=== PATIENT | male | born 1965 | race Two or more races ===

== ENCOUNTER 2020-02-12 14:50 | Emergency (ER) | payer MEDICAID, OTHER ==
[~2020-02-12] VITALS: Ht 185.4 cm; Wt 104.8 kg
[2020-02-12 20:01] VITALS: BP 131/88
== END 2020-02-12 20:50 | disposition home or self-care (01) ==
LOC: ER 14:50
DX: K04.7 Periapical abscess without sinus (principal); K02.9 Dental caries, unspecified; K03.81 Cracked tooth

== ENCOUNTER 2020-07-19 10:21 | Emergency (ER) | payer MEDICAID ==
[~2020-07-19] VITALS: Ht 185.4 cm; Wt 108.9 kg
[2020-07-19 10:25] VITALS: BP 140/96
== END 2020-07-19 11:04 | disposition home or self-care (01) ==
LOC: ER 10:21
DX: K04.7 Periapical abscess without sinus (principal)

== ENCOUNTER 2021-10-25 07:09 | Emergency (ER) | payer MEDICAID ==
[~2021-10-25] VITALS: Ht 188 cm; Wt 106.6 kg
[2021-10-25] MEDS ORDERED: PENI500T2 PO (08:00)
[2021-10-25] MEDS ORDERED: LIDO2SOL23 MT (08:00)
[2021-10-25 08:23] VITALS: BP 125/69
== END 2021-10-25 08:31 | disposition home or self-care (01) ==
LOC: ER 07:09
DX: J02.0 Streptococcal pharyngitis (principal)

== ENCOUNTER 2021-12-02 14:56 | Emergency (ER) | payer MEDICAID ==
[~2021-12-02] VITALS: Ht 190.5 cm; Wt 102.1 kg
[~2021-12-02 14:56] MED LIST: LIDO2SOL23 MT; PENI500T2 PO
[2021-12-02 18:48] VITALS: BP 107/76
[2021-12-02] MEDS ORDERED: COLC1TAB3 PO (19:32)
[2021-12-02] MEDS ORDERED: INDO50CA82 PO (19:32)
== END 2021-12-02 19:38 | disposition home or self-care (01) ==
LOC: ER 14:56
DX: M10.9 Gout, unspecified (principal)
CPT/HCPCS: 73630